=== PATIENT | female | born 1965 | race Caucasian/White ===

== ENCOUNTER → 2016-10-09 | Outpatient (CLI) | payer BC ==
[~2016-10-09] MED LIST: ATOR10TA82 PO; CHOL100027 PO; CLX20 PO; FLNIN NAE; MULT-506 PO
== END | disposition home or self-care (01) ==
LOC: C.PATHSPEC 17:47
PROVIDERS: ATTEND Surgery
DX: D17.1 Benign lipomatous neoplasm of skin and subcutaneous tissue of trunk (principal)